=== PATIENT | female | born 1955 | race African-American/Black ===

== ENCOUNTER 2020-11-07 12:03 | Emergency (ER) | payer MEDICARE, OTHER ==
[~2020-11-07] VITALS: Ht 180.3 cm; Wt 72.7 kg
[2020-11-07] MEDS ORDERED: SITA100 PO (12:17)
[2020-11-07] MEDS ORDERED: DULA1.5P SQ (12:17)
[2020-11-07] MEDS ORDERED: ASPI-1227 PO (12:17)
[2020-11-07] MEDS ORDERED: LISI-662 PO (12:17)
[2020-11-07] MEDS ORDERED: METF-960 PO (12:17)
[2020-11-07] MEDS ORDERED: HYDR-4396 PO (12:17)
[2020-11-07] MEDS ORDERED: SODIUM CHLORIDE 0.9% 1,000 ML IV ONE (12:45)
[2020-11-07] MEDS ORDERED: INSULIN REGULAR, HUMAN 100 UNITS/ML IVP ONE (12:45)
[2020-11-07 13:20] LABS: BASOPHILS % (AUTO) 0.5 % (0.0-2.0); EOSINOPHILS % (AUTO) 4.4 % (1.0-6.0); HEMATOCRIT 36.9 % (36-46); LYMPHOCYTES # (AUTO) 2.3 K/uL (1.0-4.8); LYMPHOCYTES % (AUTO) 33.8 % (22.0-44.0); MEAN CORPUSCULAR HEMOGLOBIN 28.7 pg (26.0-34.0); MEAN CORPUSCULAR HGB CONC 32.4 G/dL (31.0-37.0); MEAN CORPUSCULAR VOLUME 89 fL (80-100); MONOCYTES # (AUTO) 0.4 K/uL (0.1-1.0); MONOCYTES % (AUTO) 5.7 % (2.0-9.0); NEUTROPHILS # (AUTO) 3.9 K/uL (1.8-7.7); NEUTROPHILS % (AUTO) 55.6 % (40.0-70.0); PLATELET COUNT (AUTO) 147 K/uL (150-450); RED BLOOD CELL COUNT(AUTO) 4.16 MIL/uL (4.00-5.20)
[2020-11-07 13:28] LABS: CALCIUM, TOTAL 9.4 mg/dL (8.8-10.5); CREATININE 1.74 mg/dL (0.60-1.30); POTASSIUM 4.3 mmol/L (3.5-5.1)
[2020-11-07 13:34] LABS: ALBUMIN 3.6 g/dL (3.4-5.0); BILIRUBIN,TOTAL 0.3 mg/dL (0.1-1.0); TOTAL PROTEIN, SERUM 8.1 g/dL (6.4-8.2)
[2020-11-07 14:25] LABS: GLUCOSE,POINT OF CARE 277 MG/DL (70-110)
[2020-11-07 15:17] VITALS: BP 138/75
[2020-11-07 17:30] LABS: GLUCOSE,POINT OF CARE 250 MG/DL (70-110)
== END 2020-11-07 15:57 | disposition home or self-care (01) ==
LOC: EMS 12:03
DX: E11.65 Type 2 diabetes mellitus with hyperglycemia (principal); I10 Essential (primary) hypertension; Z88.0 Allergy status to penicillin; Z88.8 Allergy status to other drugs, medicaments and biological substances; Z79.82 Long term (current) use of aspirin; Z79.84 Long term (current) use of oral hypoglycemic drugs; Z79.899 Other long term (current) drug therapy
CPT/HCPCS: 80053; 82962; 83690; 84484; 85025; 96361; 96374; 99284; J1815; J7030; 82948